=== PATIENT | female | born 1945 | race Caucasian/White ===

== ENCOUNTER 2020-01-12 10:27 | Emergency (ER) | payer MEDICARE, OTHER ==
[2020-01-12 10:43] VITALS: O2SAT 96
[2020-01-12] MEDS ORDERED: Sodium Chloride 0.9% 1000 ML 1,000 ML IV STA (10:51)
[2020-01-12] MEDS ORDERED: Zofran 4 MG/2 ML VIAL IV ONE (10:51)
[2020-01-12] MEDS ORDERED: Zofran 4 MG/2 ML VIAL ONE (10:55)
[2020-01-12] MEDS ORDERED: Sodium Chloride 0.9% 1000 ML 1,000 ML ONE ×2 (10:56→13:04)
--- NOTE | 2020-01-12 10:58 | ERPHSYRPT ---
- History of Present Illness Time Seen by Provider: 01/12/20 10:30 Source: patient Exam Limitations: no limitations Patient Subjective Stated Complaint: Pt states "I have been extremely nauseated lately. I have not eaten in almost 5 days." Triage Nursing Assessment: Pt presented alert and oriented X 3, skin pwd. Pt ambulates with slow shakey gait, able to speak in clear full sentences pt in no apparent respiratory distress. Physician History: This is a 74-year-old patient presenting to the ED for evaluation of generalized weakness, dizziness, reduced oral intake and vomiting for the past few weeks -Is known to have breast cancer, is scheduled to have bilateral mastectomy tomorrow by Dr. Franks -States that she was discharged last Friday from [facility] after being treated for hypertension and BANDAR -She is really not been able to eat or drink much, she ate half a cracker about a week ago, is able to drink some water. Prescribed Zofran 2 days ago, that she continues to get weak and dizzy -Denies fever/cough/abdominal pain/exposure to covid/chest pain/SOB - states she is on 6 different BP medications- has taken 4 of them today - reports constipation since last hospitalization - she is urinating some- denies frequency/dysuria - sees Charissa Jurado. Matthew and Timing/Duration: week(s) Severity: mild Associated Symptoms: nausea, vomiting, loss of appetite Allergies/Adverse Reactions: cephalexin Allergy (Mild, Verified 12/28/19 14:33) Rash levofloxacin [From Levaquin] Adverse Reaction (Verified 12/28/19 14:33) Nausea and Vomiting Home Medications: Levothyroxine Sodium 75 Mcg [Synthroid 75 Mcg] 75 mcg PO DAILY 11/08/14 [History] Simvastatin [Zocor] 10 mg PO QHS 11/08/14 [History] Abatacept [Orencia] 1 iv piggy IV UD 12/08/19 [History] Amlodipine Besylate 5 mg [Norvasc 5 mg] 5 mg PO DAILY 12/08/19 [History] Anastrozole [Arimidex] 1 mg PO UD 12/08/19 [History] Ergocalciferol (Vitamin D2) [Vitamin D] 400 unit PO DAILY 12/08/19 [History] Hydralazine HCl 100 mg PO TID 12/08/19 [History] Labetalol HCl 100 mg [Trandate 100 MG] 200 mg PO BID 12/08/19 [History] predniSONE [Prednisone] 4 mg PO DAILY 12/08/19 [History] Ondansetron [Ondansetron Odt] 4 mg PO DAILY 01/12/20 [History] cloNIDine HCL [Clonidine HCl] 0.1 mg PO BID 01/12/20 [History] Hx Tetanus, Diphtheria Vaccination/Date Given: No Hx Influenza Vaccination/Date Given: Yes Hx Pneumococcal Vaccination/Date Given: Yes Immunizations Up to Date: Yes Travel Risk - International Travel Have you traveled outside of the country in past 3 weeks: No - Coronavirus Screening Are you exhibiting any of the following symptoms?: No Close contact with a COVID-19 positive Pt in past 14-21 Days: No - Review of Systems Constitutional: Fatigue, Weakness, Weight Loss Eyes: No Symptoms Ears, Nose, & Throat: No Symptoms Respiratory: No Symptoms Cardiac: No Symptoms Abdominal/Gastrointestinal: Nausea, Vomiting, Constipation, Appetite Changes Genitourinary Symptoms: No Symptoms Musculoskeletal: No Symptoms Skin: No Symptoms Neurological: No Symptoms Psychological: No Symptoms All Other Systems: Reviewed and Negative - Past Medical History Pertinent Past Medical History: Yes Neurological History: No Pertinent History ENT History: Cataracts Cardiac History: Coronary Artery Disease, High Cholesterol, Hypertension Respiratory History: No Pertinent History Endocrine Medical History: Hypothyroidism Musculoskeletal History: Arthritis GI Medical History: Polyps History: No Pertinent History Psycho-Social History: No Pertinent History Female Reproductive Disorders: Other Other Medical History: states "oh,i do have a small aneyrysm".Will inform [employer]. left breast bx-benign - Past Surgical History Past Surgical History: Yes Neuro Surgical History: No Pertinent History Cardiac: Cardiac Stent Respiratory: No Pertinent History Gastrointestinal: Other Genitourinary: No Pertinent History Musculoskeletal: No Pertinent History Female Surgical History: Hysterectomy Other Surgical History: 2006 or 2007 colonoscopy with polyps removed - Social History Smoking Status: Former smoker Exposure to second hand smoke: Yes Drug Use: none Patient Lives Alone: No - Female History Hx Now: No - Nursing Vital Signs Nursing Vital Signs: Initial Vital Signs Temperature 97.4 F 01/12/20 10:35 Pulse Rate 74 01/12/20 10:35 Respiratory Rate 20 01/12/20 10:35 Blood Pressure 173/57 01/12/20 10:35 O2 Sat by Pulse Oximetry 96 01/12/20 10:35 Pain Scale Pain Intensity 0 - Physical Exam General Appearance: no apparent distress Eye Exam: PERRL/EOMI, eyes nml inspection, pale conjunctivae Ears, Nose, Throat Exam: normal ENT inspection, TMs normal, pharynx normal Neck Exam: normal inspection, non-tender, supple Respiratory Exam: normal breath sounds, lungs clear, No respiratory distress Cardiovascular Exam: regular rate/rhythm, normal heart sounds, normal peripheral pulses, murmur Gastrointestinal/Abdomen Exam: soft, normal bowel sounds, No tenderness, No distention, No mass, No guarding, No pulsatile mass Pelvic Exam: not done Back Exam: normal inspection, No CVA tenderness Extremity Exam: normal inspection, normal range of motion Neurologic Exam: alert, oriented x 3, cooperative Skin Exam: warm, dry, rash (on right LE and b/l UE,pt. states erythema over b/l UE is from starting IV line during previous hospitalization.Does not know that she had a rash on LE.) Lymphatic Exam: No adenopathy SpO2 Interpretation: normal SpO2: 96 O2 Delivery: Room Air Ordered Tests: Active Orders 24 hr Category Date Time Status IV Insertion STAT Care 01/12/20 10:51 Active ABDOMEN 2 VIEW Stat Exams 01/12/20 11:33 Completed CBC W DIFF Stat Lab 01/12/20 10:51 Completed CK-Creatinine Phosphokinase Routine Lab 01/12/20 10:51 Completed CMP Stat Lab 01/12/20 10:51 Completed Manual Differential NC Stat Lab 01/12/20 10:51 Completed TROPONIN Q3H Lab 01/12/20 10:51 Completed TROPONIN Q3H Lab 01/12/20 16:00 Ordered TROPONIN Q3H Lab 01/12/20 19:00 Ordered TROPONIN Q3H Lab 01/12/20 22:00 Ordered UA W/RFX UR CULTURE Stat Lab 01/12/20 10:52 Completed Medication Summary Generic Name Dose Route Start Last Admin Trade Name Freq PRN Reason Stop Dose Admin Sodium Chloride 1,000 mls @ 75 mls/hr 01/12/20 13:00 01/12/20 13:06 Sodium Chloride 0.9% 1000 Ml IV 02/11/20 12:59 75 mls/hr .[id number] DUONG Administration Discontinued Medications Generic Name Dose Route Start Last Admin Trade Name Alexsandra PRN Reason Stop Dose Admin Sodium Chloride 1,000 mls @ 999 mls/hr 01/12/20 10:51 01/12/20 12:18 Sodium Chloride 0.9% 1000 Ml IV 01/12/20 11:51 Infused .Q1H1M STA Infusion Sodium Chloride Confirm 01/12/20 10:56 Sodium Chloride 0.9% 1000 Ml Administered 01/12/20 10:57 Dose 1,000 mls @ ud .ROUTE .STK-MED ONE Ondansetron HCl 4 mg 01/12/20 10:51 01/12/20 10:57 Zofran 4 Mg/2 Ml Vial IV 01/12/20 10:52 4 mg STAT ONE Administration Ondansetron HCl Confirm 01/12/20 10:55 Zofran 4 Mg/2 Ml Vial Administered 01/12/20 10:56 Dose 4 mg .ROUTE .STK-MED ONE Lab/Rad Data: Laboratory Result Diagrams 01/12/20 10:51 01/12/20 10:51 Laboratory Results 01/12/20 01/12/20 01/12/20 Range/Units 10:52 10:51 10:51 WBC (4.0-10.5) K/mm3 RBC (4.1-5.4) M/mm3 Hgb (12.0-16.0) gm/dl Hct (35-47) % MCV (78-100) fl MCH (26-32) pg MCHC (32-36) g/dl RDW (11.5-14.0) % Plt Count (150-450) K/mm3 MPV (7.5-11.0) fl Segmented Neutrophils (36.0-66.0) % Band Neutrophils (0.0-2.0) % Lymphocytes (Manual) (24-44) % Monocytes (Manual) (0.0-12.0) % Eosinophils (Manual) (0.00-3.0) % Toxic Granulation Platelet Estimate (NORMAL) RBC Morphology Sodium 123 L (137-145) mmol/L Potassium 4.6 (3.5-5.1) mmol/L Chloride 92 L (98-107) mmol/L Carbon Dioxide 10 L* (22-30) mmol/L Anion Gap 25.4 H (5-15) MEQ/L BUN 54 H (7-17) mg/dL Creatinine 5.43 H (0.52-1.04) mg/dL Estimated GFR 8.2 ML/MIN Glucose 84 (74-106) mg/dL Calcium 8.8 (8.4-10.2) mg/dL Total Bilirubin 0.60 (0.2-1.3) mg/dL AST 32 (14-36) U/L ALT 11 (0-35) U/L Alkaline Phosphatase 104 (38-126) U/L Creatine Kinase 72 (30-135) U/L Troponin I < 0.012 (0.000-0.034) ng/mL Serum Total Protein 6.1 L (6.3-8.2) g/dL Albumin 3.7 (3.5-5.0) g/dL Urine Color YELLOW (YELLOW) Urine Appearance SLIGHTLY CLOUDY (CLEAR) Urine pH 5.0 (5-6) Ur Specific Marion 1.017 (1.005-1.025) Urine Protein 30 (Negative) Urine Ketones SMALL (NEGATIVE) Urine Blood NEGATIVE (0-5) Eben/ul Urine Nitrite NEGATIVE (NEGATIVE) Urine Bilirubin NEGATIVE (NEGATIVE) Urine Urobilinogen 2 (0-1) mg/dL Ur Leukocyte Esterase NEGATIVE (NEGATIVE) Urine WBC (Auto) 3-5 (0-5) /HPF Urine RBC (Auto) NONE (0-2) /HPF U Hyaline Cast (Auto) 3-5 (0-2) /LPF U Epithel Cells (Auto) NONE (FEW) /HPF Urine Bacteria (Auto) NONE (NEGATIVE) /HPF Unidentified Crystals 2-5 (NEGATIVE) /HPF Other Casts (Auto) 2-5 (NEGATIVE) /LPF Urine Mucus (Auto) SLIGHT (NEGATIVE) /HPF Urine Culture Reflexed NO (NO) Urine Glucose NEGATIVE (NEGATIVE) mg/dL 01/12/20 Range/Units 10:51 WBC 7.6 (4.0-10.5) K/mm3 RBC 3.69 L (4.1-5.4) M/mm3 Hgb 10.3 L (12.0-16.0) gm/dl Hct 29.9 L (35-47) % MCV 81.0 (78-100) fl MCH 27.9 (26-32) pg MCHC 34.4 (32-36) g/dl RDW 15.6 H (11.5-14.0) % Plt Count 115 L (150-450) K/mm3 MPV 9.0 (7.5-11.0) fl Segmented Neutrophils 84 H (36.0-66.0) % Band Neutrophils 2 (0.0-2.0) % Lymphocytes (Manual) 9 L (24-44) % Monocytes (Manual) 4 (0.0-12.0) % Eosinophils (Manual) 1 (0.00-3.0) % Toxic Granulation 1+ Platelet Estimate NORMAL (NORMAL) RBC Morphology NORMAL Sodium (137-145) mmol/L Potassium (3.5-5.1) mmol/L Chloride (98-107) mmol/L Carbon Dioxide (22-30) mmol/L Anion Gap (5-15) MEQ/L BUN (7-17) mg/dL Creatinine (0.52-1.04) mg/dL Estimated GFR ML/MIN Glucose (74-106) mg/dL Calcium (8.4-10.2) mg/dL Total Bilirubin (0.2-1.3) mg/dL AST (14-36) U/L ALT (0-35) U/L Alkaline Phosphatase (38-126) U/L Creatine Kinase (30-135) U/L Troponin I (0.000-0.034) ng/mL Serum Total Protein (6.3-8.2) g/dL Albumin (3.5-5.0) g/dL Urine Color (YELLOW) Urine Appearance (CLEAR) Urine pH (5-6) Ur Specific Marion (1.005-1.025) Urine Protein (Negative) Urine Ketones (NEGATIVE) Urine Blood (0-5) Eben/ul Urine Nitrite (NEGATIVE) Urine Bilirubin (NEGATIVE) Urine Urobilinogen (0-1) mg/dL Ur Leukocyte Esterase (NEGATIVE) Urine WBC (Auto) (0-5) /HPF Urine RBC (Auto) (0-2) /HPF U Hyaline Cast (Auto) (0-2) /LPF U Epithel Cells (Auto) (FEW) /HPF Urine Bacteria (Auto) (NEGATIVE) /HPF Unidentified Crystals (NEGATIVE) /HPF Other Casts (Auto) (NEGATIVE) /LPF Urine Mucus (Auto) (NEGATIVE) /HPF Urine Culture Reflexed (NO) Urine Glucose (NEGATIVE) mg/dL - Progress Progress: unchanged Progress Note: This's a 74 yr old pt. known to have breast cancer, scheduled for b/l mastectomy tomorrow, presenting to ED for evaluation of weakness, decreased oral intake, vomiting and dizziness. She was seen and evaluated in ED room 6 - On arrival- BP high at 173/57, rest of vial signs stable Workup Labs- CBC, CMP, UA, troponin, cpk Imaging- Abdominal X- RAY Results- cbc SHOWS EVIDENCE OF ANEMIA WITH HB 10.3- WHICH PER CHART REVIEW IS CHRONIC. CMP--GFR of 8 which is chronic, Cr- 5.43, hyponatremia with Na 123, bicarb- 10, anion gap 25.4 Troponins and cpk- WNL Medications given- IV fluid bolus, zofran 01/12/20 11:01 01/12/20 11:07 - Pt. weighed 108 lb last week at , currently weighs 107 lb - 01/12/20 12:06 Current problems - Dehydration - BANDAR on CKD- IVF in progress, UA pending at this time straight cath done to obtain urine specimen - Hyponatremia- possibly due to dehydration, ?SIADH - Anion gap metabolic acidosis with bicarb of 10 -HTN- Uncontrolled BP-currrently on 6 meds - constipation - Generalized weakness - Dizziness - Poor oral intake 01/12/20 13:03 UA shows no evidence of infection abdominal x-ray shows no evidence of constipation Pt. needs nephrology care - we do not have nephrology coverage at [facility] - Discussed with -FP physician at - who initially deferred case to nephrology, but later called back and accepted pt. for admission - discussed low bicarb and it was decided pt can get further workup and bicarb at - does not have beds at this time- wait time 2 hrs per transfer center - Pt. has been updated on all of above 01/12/20 13:58 VSS and pt. is on IVF at 75cc/hr HTn resolved withour rx- BP- 149/79, HR 87, Sats 94% on RA 01/12/20 16:06 pt. has a bed at now Reexamination - pt. is hemodynamically and neurologically stable IVF going at 75 cc/hr Pt. is stable for transfer. - Departure Departure Disposition: Transfer Clinical Impression: Acute kidney injury superimposed on CKD, Hyponatremia, High anion gap metabolic acidosis, Dehydration, Decreased oral intake, Generalized weakness, Anemia Condition: Stable Critical Care Time: Yes Critical Care Time(excluding separately billable procedures): Critical 30-74 mins (pt. will be transferred to for further management) Referrals: LINDA ELAM [Primary Care Provider] -
[2020-01-12 11:05] LABS: Hematocrit 29.9 % (35-47); Hemoglobin 10.3 gm/dl (12.0-16.0); Mean Corpuscular Hemoglobin 27.9 pg (26-32); Mean Corpuscular Hgb Concent. 34.4 g/dl (32-36); Platelet Count 115 K/mm3 (150-450); Red Blood Count 3.69 M/mm3 (4.1-5.4); Red Cell Distribution Width 15.6 % (11.5-14.0); White Blood Count 7.6 K/mm3 (4.0-10.5)
[2020-01-12 11:15] LABS: ALBUMIN 3.7 g/dL (3.5-5.0); ANION GAP 25.4 MEQ/L (5-15); BILIRUBIN,TOTAL 0.6 mg/dL (0.2-1.3); Calcium 8.8 mg/dL (8.4-10.2); Creatinine 1 5.43 mg/dL (0.52-1.04); EST GLOMERULAR FILTRATION RATE 8.2 ML/MIN; Potassium 4.6 mmol/L (3.5-5.1); Total Protein 6.1 g/dL (6.3-8.2)
--- NOTE | 2020-01-12 11:57 | XRAY ---
Indication: Nausea and constipation. Comparison: None Supine and left lateral decubitus abdomen nonacute and nonobstructed with little to no fecal debris. Elsewhere heavy vascular calcifications, splenic calcified granulomas, and small left lung base effusion. Remaining solid organs and osseous structures unremarkable.
[2020-01-12 11:59] LABS: Appearance SLIGHTLY CLOUDY (CLEAR); Bilirubin NEGATIVE (NEGATIVE); Blood NEGATIVE Ery/ul (0-5); Glucose NEGATIVE (NEGATIVE); Ketones SMALL (NEGATIVE); Leukocyte Esterase NEGATIVE (NEGATIVE); Mucus SLIGHT /HPF (NEGATIVE); Nitrite NEGATIVE (NEGATIVE); Protein,Urine Dip 30 (Negative); Specific Gravity 1.017 (1.005-1.025); Urobilinogen 2 mg/dL (0-1)
[2020-01-12] MEDS ORDERED: Sodium Chloride 0.9% 1000 ML 1,000 ML IV SCH (13:00)
[2020-01-12 13:24] LABS: CK-Creatinine Phosphokinase 72 U/L (30-135)
[2020-01-12 13:25] LABS: TROPONIN < 0.012 ng/mL (0.000-0.034)
[2020-01-12 14:06] LABS: BAND 2 % (0.0-2.0); Eosinophil 1 % (0.00-3.0); Lymphocytes 9 % (24-44); Monocyte 4 % (0.0-12.0); Neutrophils 84 % (36.0-66.0); Platelet Estimate NORMAL (NORMAL); Total Cells Counted 100; Toxic Granulation 1+
[2020-01-12 14:28] VITALS: PULSE 77
[2020-01-12 16:11] VITALS: BP 190/63
== END 2020-01-12 16:29 | disposition short-term general hospital (02) ==
LOC: ED 10:27
DX: N17.9 Acute kidney failure, unspecified (principal); I12.9 Hypertensive chronic kidney disease with stage 1 through stage 4 chronic kidney disease, or unspecified chronic kidney disease; N18.9 Chronic kidney disease, unspecified; E87.2 Acidosis; E86.0 Dehydration; R63.8 Other symptoms and signs concerning food and fluid intake; R53.1 Weakness; D64.9 Anemia, unspecified; Z85.3 Personal history of malignant neoplasm of breast; I25.10 Atherosclerotic heart disease of native coronary artery without angina pectoris; E78.00 Pure hypercholesterolemia, unspecified
CPT/HCPCS: 74021; 80053; 81001; 82550; 84484; 85025; 96360; 96374; 99291; P9612; 36000; 36415; 99285; J2405